=== PATIENT | female | born 1970 | race Caucasian/White ===

== ENCOUNTER 2016-07-16 17:24 | Emergency (ER) | payer BC, OTHER ==
[~2016-07-16] VITALS: Ht 157.5 cm; Wt 68.2 kg
[~2016-07-16 17:24] MED LIST: ALBU18HF INHALATION; AZIT250T94 PO; BENZ200C43 PO
--- NOTE | 2016-07-16 18:23 | ERA ---
ER Documentation Chief Complaint Date/Time DATE: 07/16/16 TIME: 18:20 Chief Complaint HPI This is a very pleasant 45-year-old female that presents to the emergency department complaining of intermittent abdominal pain has been present for the past several months. The patient has known history of an abdominal hernia. She has had a previous visit to where she had a CT scan in April 2016 but indicated no surgical intervention was required at that time as the hernia was not strangulate it. She indicates that the abdominal pain has progressively worsened over the past several days and therefore went to her primary care physician's office, Dr. Elliott, who evaluated the patient in his office and immediately sent her to the emergency department to be further evaluated due to her significant abdominal tenderness. She indicates she had no bilious or nonbilious emesis. She has had no fevers no shaking or chills. She denies any constipation or diarrhea. She has had no chest pain or pressure that radiates to the neck arm back or jaw. ROS All systems reviewed and are negative except as per history of present illness. Medications Home Meds Active Scripts Omeprazole* (Omeprazole*) 40 Mg Capsule.dr, 40 MG PO DAILY, #30 CAP Prov:MATILDA SIMPSON 07/16/16 Ibuprofen* (Motrin*) 600 Mg Tab, 600 MG PO Q8, #30 TAB Prov:MATILDA SIMPSON 07/16/16 Reported Medications Docusate Sodium* (Doc-Q-Lace*) 100 Mg Capsule, 100 MG PO BID Y for CONSTIPATION , CAP 07/16/16 Hydrocodone/Acetaminophen ([place] 5-325 Tablet) 1 Each Tablet, 1 EACH PO BID, TAB 07/16/16 Discontinued Scripts Albuterol Sulfate* (Ventolin HFA*) 18 Gm Hfa.aer.ad, 2 PUFF INHALATION Q6H, #1 INHALER Prov:DOUG FORTUNE MD 05/11/15 Benzonatate* (Benzonatate*) 200 Mg Capsule, 200 MG PO TID Y for COUGH, #15 CAP Prov:DOUG FORTUNE MD 05/11/15 Azithromycin* (Zithromax*) 250 Mg Tablet, 250 MG PO .EusebioPACK DIRECTED, #6 TAB TAKE 500 MG (2 TABS) THE FIRST DAY THEN 250 MG (1 TAB) DAYS 2-5 Prov:DOUG FORTUNE MD 05/11/15 Allergies Allergies: Coded Allergies: No Known Allergy (Verified , 07/16/16) PMhx/Soc History of Surgery: Yes (CSECTION) Hx Miscellaneous Medical Probl: Yes (FIBROIDS) Hx Alcohol Use: No Hx Substance Use: No Hx Tobacco Use: No Physical Exam Vitals Vital Signs Date Time Temp Pulse Resp B/P Pulse Ox O2 Delivery O2 Flow Rate FiO2 07/16/16 19:57 98.7 63 20 141/81 98 Physical Exam Constitutional:Well-developed. Well-nourished. HEENT:Normocephalic. Atraumatic.Pupils were equal round reactive to light. Moist mucous membranes.No tonsillar exudates. Neck: No nuchal rigidity. No lymphadenopathy. No posterior cervical spine tenderness or step-offs. Respiratory: Not using accessory muscles of respiration.Lungs were clear to auscultation bilaterally. No rhonchi. No rales. No wheezing. Cardiovascular: Regular rate regular rhythm.No murmurs. No rubs were appreciated.S1, S2 normal. Distal pulses are palpable 2+ bilaterally. GI: Abdomen was soft. Periumbilical tenderness with reducible abdominal hernia. Non Distended. No pulsatile abdominal masses or bruits. No rebound. No guarding. Bowel sounds were present and normal. Muscle skeletal: Full range of motion of both the upper and lower extremities bilaterally.Normal muscle tone.No assymetrical calf tenderness or swelling. Skin: No petechia, no purpura. No lesions on the palms or the soles of the feet. No maculopapular rash. NEURO: Patient was alert, awake, orientated x3.No facial droop. Gait observed and normal with no ataxia.Speech had regular rate and rhythm. No focal neurological deficits. Result Diagram: 07/16/16193907/16/161939 Results 24 hrs Laboratory Tests Test 07/16/16 19:40 White Blood Count 9.410^3/ul Red Blood Count 4.8310^6/ul Hemoglobin 14.0g/dl Hematocrit 42.0% Mean Corpuscular Volume 87.0fl Mean Corpuscular Hemoglobin 29.0pg Mean Corpuscular Hemoglobin Concent 33.3g/dl Red Cell Distribution Width 12.9% Platelet Count 19683^3/UL Mean Platelet Volume 9.4fl Neutrophils % 64.6% Lymphocytes % 26.6% Monocytes % 4.7% Eosinophils % 3.5% Basophils % 0.2% Nucleated Red Blood Cells % 0.0/100WBC Neutrophils # 6.110^3/ul Lymphocytes # 2.510^3/ul Monocytes # 0.410^3/ul Eosinophils # 0.310^3/ul Basophils # 0.010^3/ul Nucleated Red Blood Cells # 0.010^3/ul Prothrombin Time 12.3Sec Prothrombin Time Ratio 1.0 INR International Normalized Ratio 0.91 Activated Partial Thromboplast Time 34.3Sec Sodium Level 139mmol/L Potassium Level 4.0mmol/L Chloride Level 101mmol/L Carbon Dioxide Level 24mmol/L Anion Gap 18 Blood Urea Nitrogen 10mg/dl Creatinine 0.63mg/dl Glucose Level 94mg/dl Calcium Level 9.8mg/dl Total Bilirubin 0.3mg/dl Direct Bilirubin 0.00mg/dl Indirect Bilirubin 0.3mg/dl Aspartate Amino Transf (AST/SGOT) 24IU/L Alanine Aminotransferase (ALT/SGPT) 35IU/L Alkaline Phosphatase 119IU/L Troponin I < 0.012ng/ml Total Protein 9.4g/dl Albumin 5.2g/dl Globulin 4.20g/dl Albumin/Globulin Ratio 1.23 Amylase Level 90U/L Lipase 75U/L Current Medications Medications (Trade) Dose Ordered Sig/Tomasa Route PRN Reason Start Time Stop Time Status Last Admin Dose Admin Sodium Chloride (NS) 1,000 ml @ 1,000 mls/hr Q1H STAT IV 07/16/16 19:30 07/16/16 20:29 DC 07/16/16 19:45 Morphine Sulfate (morphine) 4 mg ONCE STAT IV 07/16/16 19:30 07/16/16 19:31 DC 07/16/16 19:44 Ondansetron HCl (Zofran Inj) 4 mg ONCE STAT IV 07/16/16 19:30 07/16/16 19:31 DC 07/16/16 19:45 IV Flush 10 ml 10 ml STK-MED ONCE .ROUTE 07/16/16 20:56 07/16/16 20:57 DC 07/16/16 21:17 Sodium Chloride (NS) 100 ml @ ud STK-MED ONCE .ROUTE 07/16/16 20:56 07/16/16 20:57 DC 07/16/16 21:17 Iohexol (Omnipaque 300mg/ ml) 150 ml STK-MED ONCE .ROUTE 07/16/16 20:56 07/16/16 20:57 DC 07/16/16 21:17 Diclofenac Sodium (Dyloject) 37.5 mg ONCE STAT IV 07/16/16 22:07 07/16/16 22:08 DC Procedures/MDM This patient presented to the emergency department with abdominal pain and was seen and evaluated by myself. My differential diagnosis included but was not limited to abdominal aortic aneurysm, appendicitis, pancreatitis, perforated peptic ulcer, perforated viscus, Boerhaaves syndrome or visceral pain such as diverticulitis, DKA, esophagitis, hepatitis or bowel obstruction. The patient was placed on a driller's offsider, continuous pulse oximetry, and IV access was established by nursing staff. Patient received intravenous morphine and Zofran for analgesic control Given that the patient had such significant pain with failed outpatient treatment with [place] I did feel is necessary to obtain a CT scan of the abdomen to rule out an acute surgical abdomen. CT scan of the abdomen reviewed by both myself and the radiologist indicated the following: Fibroid uterus. Mildly enlarged right ovary with probable cyst/follicles. This can be evaluated with ultrasound as clinically warranted. Small omentum containing periumbilical hernia. The patient no physical exam findings to suggest a surgical abdomen, gangrene or obstruction. I explained to the patient at this time that she will require an outpatient surgical consult. And placed a call to Dr. Velazco however he was unavailable and L4 I spoke with Dr. Duval who is on-call for him to inform him that the patient would benefit from an outpatient surgical consult. Also obtained an ultrasound of the pelvis and the patient had uterine fibroids that he also felt could be exacerbating her pain. 12 Lead EKG tracing ordered and reviewed by myself showed: Normal sinus rhythm of 69 bpm and no arrhythmia. OR interval normal. QRS duration normal. No ST segment elevation No ST segment depression. No changes consistent with acute ischemia. The patient was discharged home in fair condition. They were instructed to return to the emergency department at any time if there was any worsening of their condition. The patient stated they would follow up with their PCP in the next 24-48 hours to initiate a suitable medication regimen under the care of their PCP as well as to allow their PCP to monitor any drug reactions. The patient was discharged home with prescriptions after they gave informed consent to the new medication. They were also fully informed by myself on the adverse effects and adverse drug interactions in order to provide adequate safeguards to prevent possible adverse reactions to medications. Departure Diagnosis: Primary Impression: Umbilical hernia Qualified Code: K42.9 - Umbilical hernia without obstruction and without gangrene Additional Impression: Fibroids Qualified Code: D25.9 - Uterine leiomyoma, unspecified location Condition: MATILDA Young Jul 16, 2016 18:23
[2016-07-16] MEDS ORDERED: morphine 4 MG/ML VIAL IV STA (19:30)
[2016-07-16] MEDS ORDERED: ONDANSETRON 4 MG INJ IV STA (19:30)
[2016-07-16] MEDS ORDERED: SOD CHLORIDE 0.9% 1,000 ML IV STA (19:30)
[2016-07-16 19:53] LABS: ADD SCAN DIFF NO
[2016-07-16 19:57] VITALS: Ht 157.5 cm; Wt 68.2 kg
[2016-07-16 19:59] LABS: BASOPHILS % 0.2 % (0.0-2.0); EOSINOPHILS # 0.3 10^3/ul (0.0-0.5); EOSINOPHILS % 3.5 % (0.0-7.0); LYMPHOCYTES # 2.5 10^3/ul (0.8-2.9); LYMPHOCYTES % 26.6 % (15.0-51.0); MEAN CORPUSCULAR HGB CONC 33.3 g/dl (32.0-37.0); MEAN PLATELET VOLUME 9.4 fl (7.4-10.4); MONOCYTE # 0.4 10^3/ul (0.3-0.9); MONOCYTES % 4.7 % (0.0-11.0); NEUTROPHIL # 6.1 10^3/ul (1.6-7.5); NEUTROPHILS % 64.6 % (39.0-77.0); PLATELET COUNT 354 10^3/UL (140-415); RED BLOOD COUNT 4.83 10^6/ul (4.20-5.40); RED CELL DISTRIBUTION WIDTH 12.9 % (11.5-14.5); WHITE BLOOD COUNT 9.4 10^3/ul (4.8-10.8)
[2016-07-16] MEDS ORDERED: HYDR-906 PO (20:06)
[2016-07-16] MEDS ORDERED: DOCU100C26 PO (20:07)
[2016-07-16 20:09] LABS: CHLORIDE 101 mmol/L (97-110)
[2016-07-16 20:10] LABS: ALBUMIN 5.2 g/dl (3.3-4.9); SODIUM 139 mmol/L (135-144)
[2016-07-16 20:11] LABS: INR 0.91; PROTIME 12.3 Sec (12.2-14.2)
[2016-07-16 20:12] LABS: PARTIAL THROMBOPLASTIN TIME 34.3 Sec (25.0-35.0)
[2016-07-16 20:13] LABS: ALANINE AMINOTRANSFERASE 35 IU/L (13-69); ALBUMIN/GLOBULIN RATIO 1.23; ALKALINE PHOSPHATASE 119 IU/L (42-121); AMYLASE 90 U/L (11-123); ANION GAP 18 (8-16); ASPARTATE AMINO TRANSFERASE 24 IU/L (15-46); BILIRUBIN,INDIRECT 0.3 mg/dl (0-1.1); BILIRUBIN,TOTAL 0.3 mg/dl (0.2-1.3); BLOOD UREA NITROGEN 10 mg/dl (7-20); CALCIUM 9.8 mg/dl (8.4-10.2); CARBON DIOXIDE 24 mmol/L (21-31); CREATININE 0.63 mg/dl (0.44-1.00); GLUCOSE 94 mg/dl (70-220); TOTAL PROTEIN 9.4 g/dl (6.1-8.1)
[2016-07-16 20:29] LABS: TROPONIN-I < 0.012 ng/ml (0.00-0.12)
[2016-07-16] MEDS ORDERED: IOHEXOL 300MG/ML 150 ML BTL ONE (20:56)
[2016-07-16] MEDS ORDERED: SOD CHLORIDE 0.9% 100 ML ONE (20:56)
--- NOTE | 2016-07-16 21:46 | RADRPT ---
PROCEDURE: CT abdomen and pelvis with intravenous contrast. CLINICAL INDICATION: Pain. TECHNIQUE: CT of the abdomen/pelvis was performed utilizing axial images with reconstructions in s agittal and coronal planes after uneventful administration of 90 cc Omnipaque 300. The administered radiation dose is CTDI 17 mGy, DLP 842 mGy-cm. COMPARISON: No pertinent prior examinations were submitted for comparison. FINDINGS: Visualized Chest: The visualized lung bases are clear. Abdomen: The liver, spleen, pancreas, gallbladder,and adrenal glands are unremarkable. The kidneys are without hydronephrosis. No definite urinary calculi are seen. There is no evidence of bowel obstruction. The appendix is normal. No intra-abdominal free air is seen. There is a small omentum containing periumbilical hernia. The aperture measures up to 2.5 cm in diameter. There is no evidence of intra-abdominal adenopathy or free fluid. Pelvis: The uterus is enlarged and heterogeneous with multiple lobulations, most compatible with fibroids. There is trace pelvic free fluid. The left ovary is without enlargement. Some cystic right adnexal lesions are noted, likely within the right ovary. The right ovary is slightly enlarged, measuring up to 5 cm. Osseous structures: Unremarkable. IMPRESSION: Fibroid uterus. Mildly enlarged right ovary with probable cyst/follicles. This can be evaluated with ultrasound as clinically warranted. Small omentum containing periumbilical hernia. RPTAT: HIKT .Basim New MD, Date Time Electronically viewed and signed by .Basim New MD, on 07/16/2016 21:46 .T/
[2016-07-16] MEDS ORDERED: IBUP-1542 PO (22:06)
[2016-07-16] MEDS ORDERED: OMEP40CA6 PO (22:06)
[2016-07-16] MEDS ORDERED: DICLOFENAC SODIUM 37.5 MG/ML VIAL IV STA (22:07)
[2016-07-16 23:05] VITALS: BP 135/72; PULSE 65; RESP 16; TEMP 98.3
--- NOTE | 2016-07-16 23:20 | RADRPT ---
PROCEDURE: US Pelvis. CLINICAL INDICATION: Pelvic pain. History of fibroids TECHNIQUE: Multiple sonographic images of the pelvis were obtained utilizing a transabdominal tech nique. The images were reviewed on a PACS workstation. COMPARISON: CT abdomen and pelvis 07/16/2016 FINDINGS: Uterus: Heterogeneous in echotexture and lobulated in contour, multiple intramural leiomyomata are e vident. In the uterine fundus the fibroid is measured at 3.6 x 3.1 x 2.4 cm. In the mid posterior uterine corpus the intramural leiomyoma measures 2.3 x 1.8 x 1.4 cm. Overall uterine size is estima faviola at 11.2 x 8.7 x 6 cm, mildly enlarged. Cervix: No abnormalities of significance are seen. Endometrium: Increased in thickness; 17.2 mm. Slight hypervascular blood flow on Doppler interrogat ion is noted Right ovary / adnexa: Normal in size estimated at 4.9 x 4 x 3.4 cm. No evidence for solid masses, normal blood flow on Doppler interrogation. Ovarian cysts correlate with the CT findings, the larges t cyst measured at 2.8 x 2.2 x 2.1 cm. Alternatively, there is a septated cyst within the right ovar y. Left ovary/adnexa: The ovary is not visualized. There is no evidence of adnexal mass. Cul-de-sac: No evidence of free fluid. RPTAT:HJJR IMPRESSION: 1. Right ovarian findings correspond with the CT from earlier the same day and reflect either a sep tated cyst or separate unilocular cysts, the largest component measured at 2.8 x 2.2 x 2.1 cm. 2. Endometrial thickening possibly related to submucosal leiomyoma in this patient with an enlarged leiomyomatous uterus as seen on the CT. Correlation with dysfunctional uterine bleeding is suggest ed. 3. The left ovary is not visualized. Physician Kelly Date Time Electronically viewed and signed by Physician Kelly on 07/16/2016 23:20 JR/
== END 2016-07-16 23:06 | disposition home or self-care (01) ==
LOC: E/R 17:24
DX: K42.9 Umbilical hernia without obstruction or gangrene (principal); D25.9 Leiomyoma of uterus, unspecified; R10.33 Periumbilical pain
CPT/HCPCS: 74177; 76856; 80053; 82150; 83690; 84484; 85025; 85610; 85730; 93005; 96374; 96375; J2270; J2405; J7030; Q9967; Z7502; Z7610